=== PATIENT | male | born 1960 | race African-American/Black ===

== ENCOUNTER 2017-02-21 21:30 | Inpatient (IN) | payer SELFPAY ==
[~2017-02-21] VITALS: Ht 170.2 cm; Wt 130.3 kg
[2017-02-21] MEDS ORDERED: NITROGLYCERIN 0.4MG TABLET SL SL PRN (23:30)
[2017-02-21] MEDS ORDERED: ASPIRIN 81MG TABLET PO ONE (23:30)
[2017-02-21 23:40] LABS: BASOPHILS % 1.1 % (0.0-2.0); EOSINOPHILS % 2.7 % (0.0-5.0); HEMATOCRIT. 37.5 % (42.0-52.0); HEMOGLOBIN. 12.2 g/dL (14.0-18.0); LYMPHOCYTES % 33.7 % (20.0-50.0); MEAN CORPUSCULAR HEMOGLOBIN 24.9 pg (28.0-32.0); MEAN CORPUSCULAR VOLUME 76.8 fL (80.0-94.0); MEAN PLATELET VOLUME 8.9 fl (7.4-10.4); MONOCYTES % 7.8 % (2.0-8.0); NEUTROPHILS % 54.7 % (40.0-76.0); PLATELET 303 x1000/uL (130-400); RED BLOOD CELL COUNT 4.88 mill/uL (4.7-6.1)
[2017-02-21 23:54] LABS: PROTHROMBIN TIME 10.7 sec
[2017-02-21 23:56] LABS: CARBON DIOXIDE 27 mEq/L (21-32); CHLORIDE 104 mEq/L (98-107); TROPONIN I < 0.02 ng/mL (0.00-0.04)
[2017-02-22] VITALS (7 sets, daily range): BP systolic 115–152; BP diastolic 83–109
[2017-02-22] MEDS ORDERED: KETOROLAC 30MG/ML VIAL IV ONE (00:15)
[2017-02-22] MEDS: ONDANSETRON HCL 4MG/2ML VIAL IV PRN ×2 (05:26→16:55)
[2017-02-22] MEDS: MORPHINE SULFATE 4 MG/ML CPJ (NOT FOR IM USE) IV PRN ×4 (05:27→23:58)
[2017-02-22] MEDS ORDERED: CLOP75TA33 PO (05:39)
[2017-02-22] MEDS ORDERED: ASPI-986 PO (05:39)
[2017-02-22] MEDS ORDERED: FURO-151 PO (05:39)
[2017-02-22] MEDS ORDERED: METO25TA6 PO (05:39)
[2017-02-22] MEDS ORDERED: ATOR20TA PO (05:39)
[2017-02-22 07:57] LABS: CARBON DIOXIDE 25 mEq/L (21-32); CHLORIDE 105 mEq/L (98-107); HDL CHOLESTEROL 35 mg/dL (40-59); LDL CHOLESTEROL 113 mg/dL (5-100); TROPONIN I < 0.02 ng/mL (0.00-0.04)
[2017-02-22] MEDS: ENOXAPARIN 40MG/0.4ML SYR SUBCUT SCH ×3 (08:21→20:55)
[2017-02-22] MEDS: OMEPRAZOLE 20MG CAPSULE EXTENDED RELEASE PO SCH (08:23)
[2017-02-22 11:20] LABS: BASOPHILS % 1.8 % (0.0-2.0); EOSINOPHILS % 2.4 % (0.0-5.0); HEMATOCRIT. 33.2 % (42.0-52.0); HEMOGLOBIN. 10.9 g/dL (14.0-18.0); LYMPHOCYTES % 41.7 % (20.0-50.0); MEAN CORPUSCULAR VOLUME 76.5 fL (80.0-94.0); MEAN PLATELET VOLUME 8.9 fl (7.4-10.4); MONOCYTES % 11.5 % (2.0-8.0); NEUTROPHILS % 42.6 % (40.0-76.0); PLATELET 265 x1000/uL (130-400); RED BLOOD CELL COUNT 4.35 mill/uL (4.7-6.1); RED CELL DISTRIBUTION WIDTH 16.8 % (11.6-14.6)
[2017-02-22] MEDS: FUROSEMIDE 20MG TABLET PO SCH ×3 (11:50→20:55)
[2017-02-22] MEDS: AMLODIPINE 5MG TABLET PO SCH ×3 (11:50→20:55)
[2017-02-22] MEDS: ASPIRIN 81MG EC TABLET PO SCH (11:50)
[2017-02-22] MEDS: CLOPIDOGREL 75MG TABLET PO SCH (11:50)
[2017-02-22] MEDS: LISINOPRIL 10MG TABLET PO SCH ×3 (11:51→20:55)
[2017-02-22 14:21] LABS: *AMPHETAMINES SCREEN URINE NEGATIVE (NEGATIVE); *BARBITURATES SCREEN URINE NEGATIVE (NEGATIVE); *BENZODIAZEPINES SCREEN URINE NEGATIVE (NEGATIVE); *COCAINE SCREEN URINE NEGATIVE (NEGATIVE); CANNABINOID URINE SCREEN NEGATIVE (NEGATIVE); METHADONE URINE SCREEN NEGATIVE (NEGATIVE); OPIATES URINE SCREEN PRESUMTIVE POSITIVE (NEGATIVE); PHENCYCLIDINE URINE SCREEN NEGATIVE (NEGATIVE)
[2017-02-22] MEDS: ATORVASTATIN CALCIUM 20MG TABLET PO SCH ×2 (20:22→20:54)
[2017-02-22] MEDS ORDERED: HYDROCODONE/ACETAMINOPHEN 5/325MG TABLET PO PRN (21:45)
[2017-02-23] VITALS: BP 134/89
[2017-02-23 04:00] VITALS: BP 121/84
[2017-02-23] MEDS: MORPHINE SULFATE 4 MG/ML CPJ (NOT FOR IM USE) IV PRN ×2 (06:45→12:45)
[2017-02-23] MEDS: ONDANSETRON HCL 4MG/2ML VIAL IV PRN ×2 (06:52→11:03)
[2017-02-23 08:00] VITALS: BP 120/82
[2017-02-23] MEDS: OMEPRAZOLE 20MG CAPSULE EXTENDED RELEASE PO SCH (09:00)
[2017-02-23] MEDS: AMLODIPINE 5MG TABLET PO SCH (10:15)
[2017-02-23] MEDS: ASPIRIN 81MG EC TABLET PO SCH (10:15)
[2017-02-23] MEDS: LISINOPRIL 10MG TABLET PO SCH (10:15)
[2017-02-23] MEDS: ENOXAPARIN 40MG/0.4ML SYR SUBCUT SCH (10:15)
[2017-02-23] MEDS: FUROSEMIDE 20MG TABLET PO SCH (10:15)
[2017-02-23] MEDS: CLOPIDOGREL 75MG TABLET PO SCH (10:16)
[2017-02-23 12:00] VITALS: BP 114/84
[2017-02-23 14:10] VITALS: BP 125/75
== END 2017-02-23 15:51 | disposition home or self-care (01) | DRG 198 ==
LOC: ER 21:30 → 5WST 02-22 01:05 → ENRESERV 02-22 03:00
PROVIDERS: ADMIT Family Medicine Adult Medicine; ATTEND Family Medicine Adult Medicine
DX: R07.89 Other chest pain (principal); I25.2 Old myocardial infarction; I44.1 Atrioventricular block, second degree; I10 Essential (primary) hypertension; E66.9 Obesity, unspecified; E78.00 Pure hypercholesterolemia, unspecified; E78.5 Hyperlipidemia, unspecified; I25.10 Atherosclerotic heart disease of native coronary artery without angina pectoris; Z68.42 Body mass index [BMI] 45.0-49.9, adult; Z95.1 Presence of aortocoronary bypass graft; Z82.49 Family history of ischemic heart disease and other diseases of the circulatory system; Z88.0 Allergy status to penicillin; Z91.19 Patient's noncompliance with other medical treatment and regimen; Z95.5 Presence of coronary angioplasty implant and graft; Z76.5 Malingerer [conscious simulation]
CPT/HCPCS: 36415; 71010; 80048; 80053; 80061; 80305; 80307; 83735; 83880; 84443; 84484; 85025; 85610; 93005; 93306; 93970; 96374; 99285; G0482; J1650; J1885; J2270; J2405